=== PATIENT | female | born 1985 | race American Indian/Alaskan Native ===

== ENCOUNTER 2017-03-26 22:47 | Emergency (ER) | payer SELFPAY ==
[2017-03-26] MEDS ORDERED: TYLENOL ONE (23:05)
[2017-03-26] MEDS ORDERED: TYLENOL PO ONE (23:15)
[2017-03-27] MEDS ORDERED: XYLOCAINE MPF 2% INFILTRATI ONE (01:24)
--- NOTE | 2017-03-27 02:21 | Emergency Department Report ---
ED General Adult HPI - General Chief complaint: Skin/Abscess/Foreign Body Stated complaint: BOIL ON RT ARM/ FEVER Time Seen by Provider: 03/27/17 01:12 Source: patient Mode of arrival: Ambulatory Limitations: No Limitations - History of Present Illness Initial comments: right axillary abscess x 1 week hx hidradenitis supervia Onset/Timin -: week(s) Location: upper extremity Radiation: non-radiation Severity scale (0 -10): 6 Quality: burning, sharp Consistency: constant Improves with: none Worsens with: movement Associated Symptoms: fever/chills. denies: confusion, chest pain, headaches, loss of appetite, nausea/vomiting, seizure, shortness of breath, weakness Treatments Prior to Arrival: none - Related Data Previous Rx's Medication Instructions Recorded Last Taken Type Clindamycin [Clindamycin CAP] 300 mg PO Q6H #40 capsule 03/27/17 Unknown Rx traMADol [Ultram] 50 mg PO Q6HR PRN #20 tablet 03/27/17 Unknown Rx Allergies Allergy/AdvReac Type Severity Reaction Status Date / Time No Known Allergies Allergy Verified 03/26/17 23:15 ED Review of Systems ROS: Stated complaint: BOIL ON RT ARM/ FEVER Other details as noted in HPI Constitutional: denies: chills, fever Eyes: denies: eye pain, eye discharge, vision change ENT: denies: ear pain, throat pain Respiratory: denies: cough, shortness of breath, wheezing Cardiovascular: denies: chest pain, palpitations Endocrine: no symptoms reported Gastrointestinal: denies: abdominal pain, nausea, diarrhea Genitourinary: denies: urgency, dysuria, discharge Musculoskeletal: denies: back pain, joint swelling, arthralgia Skin: other (abscess right axillary ) Neurological: denies: headache, weakness, paresthesias Psychiatric: denies: anxiety, depression Hematological/Lymphatic: denies: easy bleeding, easy bruising ED Past Medical Hx - Past Medical History Previous Medical History?: Yes Hx Asthma: Yes - Surgical History Past Surgical History?: Yes Additional Surgical History: C-Sec x 2 - Social History Smoking Status: Never Smoker Substance Use Type: None - Medications Home Medications: Home Medications Medication Instructions Recorded Confirmed Last Taken Type Clindamycin [Clindamycin CAP] 300 mg PO Q6H #40 capsule 03/27/17 Unknown Rx traMADol [Ultram] 50 mg PO Q6HR PRN #20 tablet 03/27/17 Unknown Rx ED Physical Exam - General Limitations: No Limitations General appearance: alert, in no apparent distress - Head Head exam: Present: atraumatic, normocephalic - Eye Eye exam: Present: normal appearance - ENT ENT exam: Present: mucous membranes moist - Neck Neck exam: Present: normal inspection - Respiratory Respiratory exam: Present: normal lung sounds bilaterally. Absent: respiratory distress - Cardiovascular Cardiovascular Exam: Present: regular rate, normal rhythm. Absent: systolic murmur, diastolic murmur, rubs, gallop - GI/Abdominal GI/Abdominal exam: Present: soft, normal bowel sounds - Extremities Exam Extremities exam: Present: normal inspection, normal capillary refill. Absent: pedal edema, joint swelling, calf tenderness - Expanded Upper Extremity Exam Right Shoulder Exam: Present: normal inspection, full ROM Upper Arm exam: Present: normal inspection, other (right axillary abscess ) Elbow exam: Present: normal inspection, full ROM Forearm Wrist exam: Present: normal inspection, full ROM Hand Wrist exam: Present: normal inspection, full ROM Neuro motor exam: Present: wrist extension intact, thumb opposition intact, thumb IP flexion intact, thumb adduction intact, fingers 2-5 abduction intact Neurosensory exam: Present: 2-point discrimination, radial nerve intact, ulnar nerve intact, median nerve intact Vascular: Present: normal capillary refill, radial pulse, brachial pulse, ulnar pulse. Absent: vascular compromise, pulse deficit radial art, pulse deficit ulnar art, pulse deficit brachial art - Back Exam Back exam: Present: normal inspection, full ROM, tenderness - Neurological Exam Neurological exam: Present: alert, oriented X3, CN II-XII intact, normal gait, reflexes normal. Absent: motor sensory deficit - Psychiatric Psychiatric exam: Present: normal affect, normal mood - Skin Skin exam: Present: other (abscess right axillary 2x3 cm fluctuant , purulent drainage erythema ) ED Course Vital Signs 03/26/17 23:15 Temperature 101.0 F H Pulse Rate 115 H Respiratory 16 Rate Blood Pressure 114/78 [Right] O2 Sat by Pulse 97 Oximetry - I & D Right Arm Type of Procedure: Simple (right axillary abscess) Site: 2x3 Blade Size: 11 I & D Procedure: betadine prep, sterile drapes applied, sterile dressing applied Progress: right axilla abcess 2x3 erythema purulent drainage moderate amount malordorous, wound cleane with betadine solution, anesthes with 2% lidocaine plain, incusion via 11 blade blunt discection via forceps, pt refussed irrigation of wound, wound left open, pt given wound care instructions pt verbalized agreement nad understanding of same, pt tolerated procedure with minmal distress. there is no bleeding and at this time, 4x4 dressing and silk tape applied to wound. ED Medical Decision Making - Medical Decision Making pt presents for right axillary abscess hx of same 1-2 per year seen by general surgery for same last I&D 5 months ago pt advises "they keep coming back" symptoms at this time, incude pain, malodor, swelling, and purulent drainage x 1 week associated symptoms include intermittent fever, symptom exacerbated by arm movement and palpation , pt for I&D of same see procedure note, pt will follow up with General Surgery as scheduled , plan: dc to home with clindamycin 300 mg po qid x 10 days, v/s recheck at this time Temp: 98.8 HR: 81 Critical care attestation.: If time is entered above; I have spent that time in minutes in the direct care of this critically ill patient, excluding procedure time. ED Disposition Clinical Impression: Abscess of right axilla, Hidradenitis Disposition: DC-01 TO HOME OR SELFCARE Is pt being admited?: No Does the pt Need Aspirin: No Condition: Good Instructions: Abscess (ED) Additional Instructions: follow up with general surgery as scheduled Prescriptions: Clindamycin [Clindamycin CAP] 300 mg PO Q6H #40 capsule traMADol [Ultram] 50 mg PO Q6HR PRN #20 tablet PRN Reason: Pain Referrals: PRIMARY CARE, [Primary Care Provider] - 3-5 Days Forms: Work/School Release Form(ED) Time of Disposition: 02:35
[2017-03-27 02:31] VITALS: BP 99/65
== END 2017-03-27 02:59 | disposition home or self-care (01) ==
LOC: ED 22:47
DX: L02.411 Cutaneous abscess of right axilla (principal); L73.2 Hidradenitis suppurativa; J45.909 Unspecified asthma, uncomplicated

== ENCOUNTER 2017-03-31 23:53 | Emergency (ER) | payer SELFPAY ==
[2017-04-01 00:12] VITALS: BP 104/62
[2017-04-01] MEDS ORDERED: NACL 0.9% IR ONE (02:51)
[2017-04-01] MEDS ORDERED: MARCAINE 0.5% INFILTRATI ONE (02:51)
--- NOTE | 2017-04-01 02:51 | Emergency Department Report ---
- General Chief complaint: Skin/Abscess/Foreign Body Stated complaint: L ARMPIT BOIL Time Seen by Provider: 04/01/17 02:42 Source: patient Mode of arrival: Ambulatory Limitations: No Limitations - History of Present Illness Initial comments: Patient here reports that she has a boil under her left armpit times one day. She says she was recently and treatment for boil under her right armpit with clindamycin. She said the pain is 10 out of 10. She reports that she was told that she has problems with her sweat gland. This is been going on for years. Denies any fever or chills. [id number] pain medication taken without any relief. Patient had right axilla abscess drained on 03/27/2017 and was placed on clindamycin for 10 days #40 pills. 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.) Associated symptoms: denies other symptoms Treatments Prior to Arrival: NSAID - Related Data Previous Rx's Medication Instructions Recorded Last Taken Type Clindamycin [Clindamycin CAP] 300 mg PO Q6H #40 capsule 03/27/17 Unknown Rx traMADol [Ultram] 50 mg PO Q6HR PRN #20 tablet 03/27/17 Unknown Rx Allergies Allergy/AdvReac Type Severity Reaction Status Date / Time No Known Allergies Allergy Verified 03/26/17 23:15 Abscess Boil HPI - HPI Chief Complaint: Skin/Abscess/Foreign Body Stated Complaint: L ARMPIT BOIL Time Seen by Provider: 04/01/17 02:42 Home Medications: Previous Rx's Medication Instructions Recorded Last Taken Type Clindamycin [Clindamycin CAP] 300 mg PO Q6H #40 capsule 03/27/17 Unknown Rx traMADol [Ultram] 50 mg PO Q6HR PRN #20 tablet 03/27/17 Unknown Rx Allergies/Adverse Reactions: Allergies Allergy/AdvReac Type Severity Reaction Status Date / Time No Known Allergies Allergy Verified 03/26/17 23:15 ED Review of Systems ROS: Stated complaint: L ARMPIT BOIL Other details as noted in HPI Comment: All other systems reviewed and negative Constitutional: denies: chills, fever Respiratory: no symptoms reported Cardiovascular: denies: chest pain, palpitations, edema, syncope Gastrointestinal: denies: abdominal pain, nausea, vomiting Musculoskeletal: denies: back pain, joint swelling, arthralgia, myalgia Skin: other (abscess) Neurological: denies: headache, numbness, paresthesias, confusion, abnormal gait , vertigo ED Past Medical Hx - Past Medical History Previous Medical History?: Yes Hx Asthma: Yes Additional medical history: Hidradenitis - Surgical History Past Surgical History?: Yes Additional Surgical History: C-Sec x 2. incision and drainage of abscess - Family History Family history: no significant - Social History Smoking Status: Never Smoker Substance Use Type: None - Medications Home Medications: Home Medications Medication Instructions Recorded Confirmed Last Taken Type Clindamycin [Clindamycin CAP] 300 mg PO Q6H #40 capsule 03/27/17 Unknown Rx traMADol [Ultram] 50 mg PO Q6HR PRN #20 tablet 03/27/17 Unknown Rx ED Physical Exam - General Limitations: No Limitations General appearance: alert, in no apparent distress - Head Head exam: Present: atraumatic, normocephalic, normal inspection - ENT ENT exam: Present: normal exam, normal orophraynx, mucous membranes moist - Neck Neck exam: Present: normal inspection, full ROM. Absent: tenderness, meningismus, lymphadenopathy - Respiratory Respiratory exam: Present: normal lung sounds bilaterally. Absent: respiratory distress, chest wall tenderness - Cardiovascular Cardiovascular Exam: Present: regular rate, normal rhythm, normal heart sounds - GI/Abdominal GI/Abdominal exam: Present: soft, normal bowel sounds. Absent: distended, tenderness, guarding, rebound, rigid - Extremities Exam Extremities exam: Present: normal inspection, full ROM, normal capillary refill. Absent: tenderness, pedal edema, joint swelling, calf tenderness - Back Exam Back exam: Present: normal inspection, full ROM. Absent: tenderness - Neurological Exam Neurological exam: Present: alert, oriented X3, normal gait, reflexes normal. Absent: motor sensory deficit - Psychiatric Psychiatric exam: Present: normal affect, normal mood - Skin Skin exam: Present: warm, dry, normal color, other (abscess to left axillae). Absent: erythema - Expanded Skin Exam Expanded Type of lesion: Present: abscess Distribution of rash: LUE (left axilla) Description of rash: Present: tenderness, swelling, fluctuant, indurated, other (area to right axilla that was drained on 03/27/2017 is healing.). Absent: erythematous, discharge ED Course Vital Signs 04/01/17 00:04 Temperature 97.9 F Pulse Rate 92 H Respiratory 16 Rate Blood Pressure 104/62 Blood Pressure 104/62 [Left] O2 Sat by Pulse 100 Oximetry - Reevaluation(s) Reevaluation #1: 04/01/17 04:36 Patient is currently on clindamycin by mouth since 03/27/2017 for abscess to right axilla. She said her tetanus vaccine is up-to-date. 04/01/17 04:36 - I & D Left Elbow Type of Procedure: Complex Site: left axilla Blade Size: 11 I & D Procedure: betadine prep, sterile drapes applied, sterile dressing applied , gauze wick placed Progress: Left axilla abcess 2 x 2 purulent drainage moderate amount malordorous, wound cleane with betadine solution, anesthes with 0.5% Marcaine without epi 5 cc. incusion via 11 blade blunt discection via forceps, wound irrigated with normal saline and half inch iodoform packing placed inside. Sterile dry dressing placed and patient told to return in 4 days for removal of packing. She is to remain on her clindamycin which she started on 03/27/2017 for abscess to her right axilla ED Medical Decision Making - Medical Decision Making ED course: Patient with abscess to the left axilla due to Hidradenitis. She was recently treated for abscess to right axilla after incision and drainage with clindamycin by mouth and she remains on this. See procedure note for details on incision and drainage of left axilla abscess. Patient discharged home to return in 4 days for removal of packing. Discussed with her she can continue her clindamycin and to put warm compresses to the site 3-4 times a day. Critical care attestation.: If time is entered above; I have spent that time in minutes in the direct care of this critically ill patient, excluding procedure time. ED Disposition Clinical Impression: Abscess of left axilla, Encounter for incision and drainage procedure, Hidradenitis axillaris Disposition: DC-01 TO HOME OR SELFCARE Is pt being admited?: No Does the pt Need Aspirin: No Condition: Stable Instructions: Abscess Incision and Drainage (ED) Additional Instructions: Please continue to take clindamycin as previously ordered Please apply warm compresses to affected area. Keep affected area clean and dry Please return to emergency room in 4 days to have packing removed Referrals: PRIMARY CARE,MD [Primary Care Provider] - 3-5 Days return to, ER [Other] - 04/05/17 (Formal full of packing to left axilla) Forms: Work/School Release Form(ED)
== END 2017-04-01 04:50 | disposition home or self-care (01) ==
LOC: ED 23:53
DX: L02.412 Cutaneous abscess of left axilla (principal); J45.909 Unspecified asthma, uncomplicated
CPT/HCPCS: 99282